=== PATIENT | male | born 1950 | race African-American/Black ===

== ENCOUNTER 2016-07-27 14:33 | Inpatient (IN) | payer OTHER ==
[~2016-07-27] VITALS: Ht 180.3 cm; Wt 72.1 kg
--- NOTE | ~2016-07-27 | HC ---
[facility] [place] [address] CONSULTATION Name: ANN OSORIO Room #: 501-A [facility] IN ..#: [id number] Admission: 07/27/16 Attend Phys: Ronaldo Chester MD Discharge: 08/06/16 Date of : 52 Report #: [id number] THIS REPORT FOR: //name// CC: Ronaldo Woodsonne Дмитрий DATE OF SERVICE: 08/01/2016 NEUROBEHAVIORAL STATUS EXAM ATTENDING PHYSICIAN: Ronaldo Chester M.D. RED CAP: Alton Gaviria, PhD DATE OF CONSULTATION: 08/01/2016 CLINICAL PRESENTATION: The patient is a 65-year-old male admitted to the [facility] rehabilitation unit for comprehensive inpatient rehabilitation program to improve functional mobility, activities of daily living and self-care and mental status secondary to deficits from a subacute cerebrovascular accident in the posterior limb of the right internal capsule. The patient has a past medical history that includes a prior stroke in 2008, hypertension, hyperlipidemia and BPH. His diagnosis on admission to rehab includes an ischemic cardiovascular accident of lacunar variety involving the right internal capsule, left lower extremity greater than left upper extremity weakness, initial dysphagia that has resolved, prior history of stroke, tobacco abuse with smoking cessation and counseling, hypertension, hyperlipidemia, benign prostatic hypertrophy and a history of hematuria. A complete description of his medical condition and history can be found in his medical record. Neuropsychological consultation was requested to provide assistance in the assessment of cognitive and emotional status and to provide recommendations and services. Prior to this most recent medical event, he was living independently in his own home. He lives with his . He had 4 children and five siblings. The patient is a high school graduate. 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 His continues to work outside the home. The patient was independent and indicates he was driving and managing without assistance prior to this most recent stroke. TECHNIQUES UTILIZED: Clinical interview, review of medical records, staff consultation and behavioral observation, mini mental status exam 2 standard version, calibrated ideational fluency assessment (letter and category and clock drawing). [address] [address] CONSULTATION Name: OSORIOANNLILIA BONILLA Room #: 501-A [facility] IN ..#: [id number] Admission: 07/27/16 Attend Phys: Ronaldo Chester MD Discharge: 08/06/16 Date of : 52 Report #: [id number] EXAMINATION FINDINGS: The patient was alert and cooperative with the assessment. There is no evidence of aphasia. He does not report auditory or visual hallucinations. His thoughts were accurate in the description of events immediate preceding his hospitalization. He reports occasional difficulty with memory and word finding. He denies problems with sleep, energy level or appetite. He does not report any subjective depression or anxiety at this time. His mood was pleasant and euthymic. His performance on the MMSE 2 brief version was within normal limits with a raw score of 14 of 16. He was 1/3 for immediate recall of 3 items after a brief time delay and distraction. His performance on the MMSE 2 standard version was in the mild range of impairment with a raw score of 24 of 30 and a T score of 36. He was 1 of 5 for serial 7s. His performance in letter and category fluency was in the mild to moderate range of impairment. Letter fluency was a T score of 31, category fluency T score of 30 and a total fluency score was a T score of 30. Mild to moderate impairment in verbal fluency often suggets an impairment in executive functioning that could affect planning and problem solving. He was able to draw a clock and set the hands at a designated time. Visual spatial construction was within normal limits. 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 RECOMMENDATIONS: The patient is presenting with a mild neurocognitive disorder. He will likely require increased assistance with planning, problem solving and decision making. Driving should be discontinued until a more formal assessment is completed. The use of compensatory strategies for memory and executive function should assist adjustment. Thank you very much for allowing me to provide consultation on this patient. <ELECTRONICALLY SIGNED> By: Alton Gaviria, PhD 08/08/16 1547 [id number] Alton Gaviria, PhD /nt
--- NOTE | ~2016-07-27 | PLAN ---
[facility] [address] REHAB UNIT PLAN OF CARE Name: ANN OSORIO Room #: 501-A [facility] IN ..#: [id number] Admission: 07/27/16 Attend Phys: Ronaldo Chester MD Discharge: 08/06/16 Date of : 52 Report #: [id number] THIS REPORT FOR: //name// CC: Ronaldo Woodsonne Дмитрий DATE OF SERVICE: 07/29/2016 HISTORY OF PRESENT ILLNESS: The patient is in no distress. He is alert, pleasant. Last recorded temperature 97.7, pulse 64, respirations 20, blood pressure 97/54. He is working in therapies. Transfers are contact guard assistance. He is ambulating 500 feet contact guard with a standard cane. He does have decreased balance with some decreased coordination. In occupational therapy, upper body dressing is contact guard assistance with lower body contact guard assistance. He does have mild comprehensive deficits. ASSESSMENT: 1. Ischemic cerebrovascular accident lacunar involving the posterior limb of the right internal capsule. 2. Left lower extremity greater than left upper extremity weakness with paresis. 3. Initial dysphagia that is improved. 4. Prior history of a stroke in 2008 without significant residual. 5. Tobacco abuse with smoking cessation counseling. 6. Hypertension. 7. Hyperlipidemia. 8. BPH. 9. History of hematuria. PLAN: The overall plan of care is based on the preadmission screen, post-admission physician evaluation and information garnered from therapy assessments. 1. Estimated length of stay is anticipated for discharge next 08/07/2016. 2. Medical prognosis is reasonably good. 3. Anticipated interventions includes the interdisciplinary acute inpatient rehabilitation program with PT and OT and speech, rehab nursing assisting regarding medication management, skin care prophylaxis, bowel and bladder issues and nursing education. The interdisciplinary rehab team is involved. 4. Anticipated functional outcomes would be for the patient to become modified independent with transfers and mobility issues at least at the cane versus walker level and ADLs as well as improvement in cognition and communication. 5. Discharge destination would be back home with his . 6. Expected therapy by discipline includes PT and OT and speech 1 hour per day, [address] [address] REHAB UNIT PLAN OF CARE Name: JOANN IRENE Room #: 501-A [facility] IN [facility]#: [id number] Admission: 07/27/16 Attend Phys: Ronaldo Chester MD Discharge: 08/06/16 Date of : 52 Report #: [id number] each 5 days a week throughout the duration of the acute inpatient rehabilitation program. <ELECTRONICALLY SIGNED> By: Ronaldo Chester MD 08/11/16 1518 [id number] Ronaldo Chester MD /nt
--- NOTE | ~2016-07-27 | H ---
[facility] [place] [address] HISTORY AND PHYSICAL Name: ANN OSORIO Room #: 501-A [facility] IN ..#: [id number] Admission: 07/27/16 Attend Phys: Ronaldo Chester MD Discharge: 08/06/16 Date of : 52 Report #: [id number] THIS REPORT FOR: //name// CC: Ronaldo Choe DATE OF SERVICE: 07/28/2016 HISTORY OF PRESENT ILLNESS: The patient is a 65-year-old right-handed male with a prior history of CVA in 2008 with good residual, was ambulatory premorbidly without gait aids, driving in the community. He was readmitted to [facility] with speech impairment, vertigo and weakness. He was seen by Neurology, was noted to have an acute to subacute cerebrovascular accident of the posterior limb right internal capsule. MRA did not show any intracranial stenosis. He was placed on aspirin and Plavix, smoking cessation counseling. Initially was on nectar thickened liquids, but was advanced to regular diet with thin liquids. He also had some hematuria that was noted. He was noted to have good tolerance for therapies, has weakness of that left lower extremity, more than the left upper extremity. He has been transferred for acute in-hospital inpatient rehabilitation to [facility] [place]. PAST MEDICAL HISTORY: Includes prior stroke in 2008 without significant residual. He has a history of hypertension, hyperlipidemia, BPH. He has the above noted history of hematuria. ALLERGIES: No known drug allergies. MEDICATIONS: Please see the full medication listing. Each of these was individually reconciled upon admission to the [facility]hab [place]. The medication list includes the medications over the counters, supplements, etc. that the patient is on. FAMILY HISTORY: Noncontributory. SOCIAL HISTORY: Lives in a house with his , split level house, 10 steps are noted 5+5. He did not utilize gait aids. 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 REVIEW OF SYSTEMS: Did not offer any current complaints of chest pain, shortness of breath or abdominal discomfort. No complaints of swallowing. No visual complaints. No focal extremity pain complaints. He does have the left-sided weakness, although he thinks it is improving. No further complaints of hematuria. PHYSICAL EXAMINATION: [facility] [address] [place] [address] HISTORY AND PHYSICAL Name: ANN OSORIO Room #: 501-A [facility] IN ..#: [id number] Admission: 07/27/16 Attend Phys: Ronaldo Chester MD Discharge: 08/06/16 Date of : 52 Report #: [id number] GENERAL: He is a pleasant 65-year-old male with slender build. HEENT: Appeared to be benign. Facies are symmetric. He is alert, oriented, appropriate, appears to be a good historian. EOMs appeared to be full. CHEST: Sounded clear to auscultation. CARDIAC: Regular rate and rhythm. ABDOMEN: Bowel sounds positive, nontender. GENITOURINARY AND RECTAL: Deferred. He does have functional range of motion of both upper extremities. NEUROLOGIC: He does quite well with [id number] bilaterally. He may have some mild decreased coordination of that left upper extremity, but the strength appears pretty symmetric at least a grade 4+/5. DTRs were trace to 1. Negative Ector's. In his lower extremities, mild decreased strength left lower extremity a grade 4-/5, right lower extremity is 4/5. DTRs are trace to 1. Sensation appeared to be intact to simultaneous stimulation both upper and lower extremities. No distal lower extremity edema. He is needing some assistance with basic functional mobility skills. ASSESSMENT: A 65-year-old right-handed male with the following problem list: 1. Ischemic cerebrovascular accident, lacunar involving the posterior limb of the right internal capsule. 2. Left lower extremity greater than left upper extremity weakness/paresis. 3. Initial dysphagia that has resolved/improved. He is now on regular consistency diet thin liquids. 4. Prior history of a stroke in 2008 without significant residual. 5. Tobacco abuse with smoking cessation counseling. 6. Hypertension. 7. Hyperlipidemia. 8. [place] prostatic hypertrophy. 9. History of hematuria. PLAN: The patient is admitted for acute in-hospital inpatient rehabilitation. From a postadmission physician evaluation perspective, there are no relevant changes since the preadmission screening. Please see the above review of prior and current medical and functional conditions and comorbidities. Please see the patient's prior and current functional status. As far as risk of complications, the patient has multiple medical comorbidities as noted above. Initial plan of care involves the interdisciplinary acute inpatient rehabilitation program with the goal of maximizing the patient's functional independence, so that he can hopefully return back to his prior living situation. Measurable functional goals would be for him to become modified independent with the appropriate gait aid to return back to the home setting. He does have a lot of steps, so this is a significant barrier as well. He also has his medical comorbidities and decreased functional status as further barriers. Prognosis nevertheless is quite good and would anticipate a fairly short length of stay. [facility] [address] [place] [address] HISTORY AND PHYSICAL Name: ANN OSORIO Room #: 501-A [facility] M.R.#: [id number] Admission: 07/27/16 Attend Phys: Ronaldo Chester MD Discharge: 08/06/16 Date of : 52 Report #: [id number] We will ask the hospitalist service to assist regarding medical management during the patient's rehab stay. <ELECTRONICALLY SIGNED> By: Ronaldo Chester MD 08/11/16 1518 [id number] 1215 Ronaldo Chester MD /nt
[~2016-07-27 14:33] MED LIST: ASPIRIN EC81 M1 PO; HYDROCHLOROTHIA25 M1 PO; LISINOPRIL10 MG PO; LOVASTAT10 PO
[2016-07-27] MEDS ORDERED: FLOMAX0.4 MG PO (15:15)
[2016-07-27] MEDS ORDERED: PLAVIX 75 MG TA75 M1 PO (15:15)
[2016-07-27] MEDS ORDERED: NORVASC10 MG PO (15:16)
[2016-07-27] MEDS ORDERED: ATORVASTATIN CA40 MG PO (15:19)
[2016-07-27] MEDS ORDERED: CHLORTHALIDONE25 MG PO (15:19)
[2016-07-27] MEDS ORDERED: LISINOPRIL20 MG PO (15:20)
[2016-07-27 16:30] VITALS: BP 124/84
[2016-07-28 04:23] LABS: HEMATOCRIT 39.7 % (42.0-52.0); HEMOGLOBIN 12.3 gm/dL (14.0-18.0); MCH 23.7 pg (26.0-34.0); MCHC 31.1 g/dL (28.0-37.0); MCV 76.3 fL (80.0-100.0); RBC 5.2 mil/uL (4.50-6.00); RDW 14.1 % (10.5-14.5); WBC 7.2 thou/uL (4.0-11.0)
[2016-07-28 04:34] LABS: POTASSIUM 3.7 mmol/L (3.5-5.1)
[2016-07-28 05:44] VITALS: BP 111/65
[2016-07-28 07:30] VITALS: BP 125/71
[2016-07-28 15:10] VITALS: BP 118/78
[2016-07-29 05:43] VITALS: BP 97/54
[2016-07-29 15:49] VITALS: BP 100/55
[2016-07-30 06:02] VITALS: BP 94/58
[2016-07-30 16:00] VITALS: BP 133/60
[2016-07-31 03:53] VITALS: BP 91/60
[2016-07-31 08:00] VITALS: BP 102/68
[2016-07-31 15:36] VITALS: BP 129/80
[2016-08-01 02:59] VITALS: BP 102/68
[2016-08-01 03:08] LABS: ALBUMIN 3.5 g/dL (3.4-5.0); CALCIUM 8.5 mg/dL (8.5-10.1); PHOSPHORUS 3.5 mg/dL (2.5-4.9); POTASSIUM 3.6 mmol/L (3.5-5.1)
[2016-08-01 16:00] VITALS: BP 113/63
[2016-08-02 05:49] VITALS: BP 93/60
[2016-08-02 16:07] VITALS: BP 138/75
[2016-08-03 06:22] VITALS: BP 98/62
[2016-08-03 16:00] VITALS: BP 102/67
[2016-08-04 05:03] VITALS: BP 107/67
[2016-08-04 06:50] VITALS: BP 113/74
[2016-08-04 16:00] VITALS: BP 109/69
[2016-08-05 04:18] VITALS: BP 93/58
[2016-08-05] MEDS ORDERED: PLAVIX 75 MG TA75 M1 PO (09:57)
[2016-08-05] MEDS ORDERED: NICOTINE TRANSDE7 MG TRANSDERM (09:57)
[2016-08-05] MEDS ORDERED: CHLORTHALIDONE25 MG PO (09:57)
[2016-08-05] MEDS ORDERED: FLOMAX0.4 MG PO (09:57)
[2016-08-05] MEDS ORDERED: LISINOPRIL20 MG PO (09:57)
[2016-08-05] MEDS ORDERED: ATORVASTATIN CA40 MG PO (09:57)
[2016-08-05] MEDS ORDERED: NORVASC10 MG PO (09:57)
[2016-08-05] MEDS ORDERED: ASPIRIN EC81 M1 PO (09:57)
[2016-08-05 15:30] VITALS: BP 123/74
[2016-08-06 05:23] VITALS: BP 92/60
[2016-08-06 09:00] VITALS: BP 104/59
[2016-08-06 10:15] VITALS: BP 104/59
[2016-08-06 10:28] VITALS: BP 104/59
== END 2016-08-06 11:40 | disposition home health service (06) | DRG 65 ==
PROVIDERS: Hospitalist; Physical Medicine & Rehabilitation
DX: I63.9 Cerebral infarction, unspecified (principal); G81.94 Hemiplegia, unspecified affecting left nondominant side; R13.10 Dysphagia, unspecified; I10 Essential (primary) hypertension; E78.5 Hyperlipidemia, unspecified; N40.0 Benign prostatic hyperplasia without lower urinary tract symptoms; G31.84 Mild cognitive impairment of uncertain or unknown etiology; I99.9 Unspecified disorder of circulatory system; G46.7 Other lacunar syndromes; R31.9 Hematuria, unspecified; Z91.19 Patient's noncompliance with other medical treatment and regimen; Z71.6 Tobacco abuse counseling
CPT/HCPCS: 10112

== ENCOUNTER 2021-01-13 09:44 | Emergency (ER) | payer OTHER ==
[~2021-01-13] VITALS: Ht 177.8 cm; Wt 63.5 kg
[~2021-01-13 09:44] MED LIST changes: +ATORVASTATIN CA40 MG PO; +CHLORTHALIDONE25 MG PO; +FLOMAX0.4 MG PO; +LISINOPRIL20 MG PO; +NICOTINE TRANSDE7 MG TRANSDERM; +NORVASC10 MG PO; +PLAVIX 75 MG TA75 M1 PO
[2021-01-13] MEDS ORDERED: AMLODIPINE BESY10 MG PO (10:10)
[2021-01-13] MEDS ORDERED: FINASTERIDE5 MG PO (10:10)
[2021-01-13 10:13] LABS: ABSOLUTE NEUTROPHILS 6.5 thou/uL (1.4-8.2); BASOPHILS 0.4 % (0.0-2.0); EOSINOPHILS 0.1 % (0.0-3.0); HEMATOCRIT 37.2 % (42.0-52.0); HEMOGLOBIN 11.6 gm/dL (14.0-18.0); MCH 23.8 pg (26.0-34.0); MCHC 31.2 g/dL (28.0-37.0); MCV 76.2 fL (80.0-100.0); MONOCYTES 16.8 % (1.0-8.0); PLATELET COUNT 437 thou/uL (150-400); POLYS 68.7 % (36.0-66.0); RBC 4.89 mil/uL (4.50-6.00); RDW 13.4 % (10.5-14.5); WBC 9.4 thou/uL (4.0-11.0)
[2021-01-13 10:22] LABS: CREATININE 1.4 mg/dL (0.7-1.3); POTASSIUM 3.6 mmol/L (3.5-5.1)
[2021-01-13 10:28] LABS: ALBUMIN 3.3 g/dL (3.4-5.0); TOTAL BILIRUBIN 0.9 mg/dL (0.2-1.0); TOTAL PROTEIN 7.7 g/dL (6.4-8.2)
[2021-01-13 11:26] LABS: URINE BILIRUBIN NEGATIVE (Negative); URINE BLOOD 3+ (Negative); URINE CLARITY CLOUDY; URINE COLOR YELLOW; URINE GLUCOSE-RANDOM* NEGATIVE (Negative); URINE KETONES NEGATIVE (Negative); URINE PROTEIN (DIPSTICK) 2+ (Negative); URINE SPECIFIC GRAVITY 1.015 (1.005-1.035)
[2021-01-13 11:27] LABS: URINE LEUKOCYTES-REFLEX 3+ (Negative); URINE NITRITE-REFLEX POSITIVE (Negative)
[2021-01-13] MEDS ORDERED: MACROBID 100 M100 M1 PO (11:36)
[2021-01-13] MEDS ORDERED: PYRIDIUM200 MG PO (11:36)
[2021-01-13 11:54] LABS: URINE RBC None Seen /HPF (NONE SEEN); URINE WBC-REFLEX >25 Many /HPF (0-5)
[2021-01-13 11:55] LABS: BACTERIA-REFLEX 1-9 Few /HPF (None Seen); CASTS None Seen /LPF (None Seen); CRYSTALS None Seen /LPF (None Seen); SQUAMOUS None Seen /LPF (0-3)
[2021-01-13 12:16] VITALS: BP 129/73
== END 2021-01-13 12:16 | disposition home or self-care (01) ==
LOC: ER 09:44
PROVIDERS: Emergency Medicine
DX: N39.0 Urinary tract infection, site not specified (principal); I10 Essential (primary) hypertension; I48.91 Unspecified atrial fibrillation; F17.210 Nicotine dependence, cigarettes, uncomplicated; Z79.899 Other long term (current) drug therapy; Z90.49 Acquired absence of other specified parts of digestive tract